=== PATIENT | female | born 1990 | race Asian ===

== ENCOUNTER 2018-10-18 01:33 | Emergency (ER) | payer OTHER, SELFPAY ==
[~2018-10-18] VITALS: Ht 149.9 cm; Wt 45.0 kg
[2018-10-18] MEDS ORDERED: ZIPRASIDONE HCL 20MG CAPSULE PO STA (03:30)
[2018-10-18 03:58] LABS: BASOPHILS % 0.4 % (0.0-2.0); HEMATOCRIT. 40.7 % (36.0-48.0); HEMOGLOBIN. 13.8 g/dL (12.0-16.0); LYMPHOCYTES % 9.2 % (20.0-50.0); MEAN CORPUSCULAR HEMOGLOBIN 33.4 pg (28.0-32.0); MEAN CORPUSCULAR VOLUME 98.2 fL (81.0-99.0); MEAN PLATELET VOLUME 6.6 fl (7.4-10.4); MONOCYTES % 6.5 % (2.0-8.0); NEUTROPHILS % 81.9 % (40.0-76.0); PLATELET 317 x1000/uL (130-400); RED BLOOD CELL COUNT 4.14 mill/uL (4.2-5.4); RED CELL DISTRIBUTION WIDTH 12.1 % (11.6-14.6)
[2018-10-18 04:00] LABS: CHLORIDE 105 mEq/L (98-107)
[2018-10-18 04:04] LABS: ETHANOL BLOOD < 10 mg/dL
[2018-10-18] MEDS ORDERED: ZIPRASIDONE HCL 20MG CAPSULE PO NR (04:30)
[2018-10-18 05:33] LABS: CLARITY URINE TURBID (CLEAR); COLOR URINE RED (YELLOW); KETONES URINE NEGATIVE (NEGATIVE); LEUKOCYTE ESTERASE URINE 3+ (NEGATIVE); NITRITE URINE NEGATIVE (NEGATIVE); OCCULT BLOOD URINE 3+ (NEGATIVE); PH URINE 5.5 (4.5-8.0); PROTEIN URINE 2+ (NEGATIVE); SPECIFIC GRAVITY URINE 1.016 (1.005-1.030); UROBILINOGEN URINE 0.2 E.U./dL (0.2-1.0)
[2018-10-18 05:49] LABS: *AMPHETAMINES SCREEN URINE NEGATIVE (NEGATIVE); *BARBITURATES SCREEN URINE NEGATIVE (NEGATIVE); *BENZODIAZEPINES SCREEN URINE NEGATIVE (NEGATIVE); *COCAINE SCREEN URINE NEGATIVE (NEGATIVE); METHADONE URINE SCREEN NEGATIVE (NEGATIVE)
[2018-10-18 05:50] LABS: CANNABINOID URINE SCREEN NEGATIVE (NEGATIVE); OPIATES URINE SCREEN NEGATIVE (NEGATIVE); PHENCYCLIDINE URINE SCREEN NEGATIVE (NEGATIVE)
[2018-10-18] MEDS ORDERED: LIDOCAINE HCL 1% 20ML VIAL (Pyxis) INJ INFIL ONE (19:15)
[2018-10-18] MEDS ORDERED: CEFTRIAXONE SODIUM 1 G/VIAL IM ONE (19:15)
[2018-10-18] MEDS ORDERED: ZIPRASIDONE HCL 20MG CAPSULE PO ONE (21:15)
[2018-10-19] MEDS ORDERED: MAGNESIUM/ALUMINUM HYDROXIDE/SIMETHICONE 30ML UDC PO ONE (18:15)
[2018-10-20] MEDS ORDERED: LORAZEPAM 2MG/ML CPJ IM ONE (05:15)
[2018-10-20] MEDS ORDERED: LORAZEPAM 2MG/ML CPJ ONE (05:22)
[2018-10-20] MEDS ORDERED: ZIPRASIDONE MESYLATE 20MG/VIAL IM ONE (05:45)
[2018-10-20] MEDS ORDERED: CEFTRIAXONE 1 G PREMIX 50 ML IV ONE (15:30)
[2018-10-20] MEDS ORDERED: SODIUM CHLORIDE 0.9% 500 ML IV ONE (15:30)
[2018-10-20] MEDS ORDERED: ONDANSETRON HCL 4MG/2ML INJ IV ONE (16:30)
[2018-10-20 19:40] VITALS: BP 95/64
== END 2018-10-20 19:48 ==
LOC: ER 01:33
DX: Z59.0 Homelessness (principal); F41.9 Anxiety disorder, unspecified
CPT/HCPCS: 36415; 70450; 80053; 80305; 80307; 80320; 80329; 81003; 81025; 85025; 87086; 99284; J0696; J2060; J2405; J3486; J3490; J7040; G0480